=== PATIENT | female | born 1995 | race Caucasian/White ===

== ENCOUNTER 2019-04-26 23:07 | Day surgery (SDC) | payer OTHER ==
[2019-04-26 23:36] VITALS: BMI 22.9
--- NOTE | 2019-04-27 00:11 | PDOC.FPROB ---
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 The patient states she was at home in bed and suddenly felt her abdomen tighten up and had sharp pains radiating into her back. She says the pain was intermittent so she tried to get in the shower to relax her muscles but this made the pain worse. She rated the pain as so bad she was unable to speak so she decided to come to L&D for evaluation. Did report one episode of vomiting 2/2 her pain but denies any associated fever/chills, vaginal bleeding, pain, LOF, or abnormal discharge. She endorses regular movement. Primary Care Physician: Stacy FMR OB H&P: Current - Care : 5 Para: 2021 Gestational age: 24.2 weeks Due date: 08/14/19 Course/Complications: none FMR OB H&P: History - Past Medical History PMH: none - OB History OB History: #1: stillbirth @ 20 weeks #2: SAB @ 3-4 weeks #3: IOL @ ~36 weeks for pre-e; #1: @ ~ 37 weeks - Surgical History Sx History: none - Social History Social History: No TAD. - Family History Family History: Parents- HTN mom- DMII FMR OB H&P: Medications - Current Home Medications: Medication Instructions Recorded Confirmed Type No Known 04/26/19 04/26/19 History Allergies/Adverse Reactions: Allergies Allergy/AdvReac Type Severity Reaction Status Date / Time morphine Allergy Unknown Verified 04/26/19 23:31 FMR OB H&P: ROS - Review of Systems General: denies: fever/chills, weight/appetite/sleep changes Eyes: denies: eye pain, vision changes ENT: denies: nasal congestion, rhinorrhea, sinus pain/pressure, sore throat Cardiovascular: denies: chest pain, edema Respiratory: denies: cough, shortness of breath Gastrointestinal: reports: abdominal pain, nausea, vomiting. denies: bright red blood, dark black tarry stools Genitourinary (Female): reports: contractions, vaginal pressure. denies: dysuria, hematuria, vaginal discharge, vaginal pain, vaginal bleeding Musculoskeletal: reports: pain Neurologic: denies: loss of counsciousness, headache Integumentary: denies: rash, lesions FMR OB H&P: Vital Signs - Maternal Vital signs: BP: 115/70 HR: 98 - Heart Tones Baseline: 130 Variability: moderate Acceleration: present Deceleration: absent Hudson contractions every: q 2-3 minutes initially but stopped s/p PO hydration FMR OB H&P: Physical Exam - Physical Exam General: NAD, awake, alert and oriented HEENT: normocephalic and atraumatic, grossly normal vision, grossly normal hearing Neck: supple, FROM Heart: RRR, normal S1/S2, no murmurs/rubs/gallops, pulses present, no edema General: CTAB, no respiratory distress, good air movement, no rales/rhonchi, no wheezing, no retractions Abdomen: soft, gravid, non-tender, bowel sound present Musculoskeletal: normal gait and station, FROM in all four extremities Neurological: cranial nerves II through XII intact, sensation to pain,touch and proprioception grossly normal, no focal deficit Skin: no rash, good tugor, capillary refill <2 seconds, no jaundice Lymphatic: no unusual bruising or bleeding, no purpura, no petechia Psychiatric: intact recent and remote memory, good judgement and insight, normal mood and affect FMR OB H&P: A/P - Problem List (1) Single in second trimester Current Visit: Yes Status: Acute Code(s): Z34.92 - ENCNTR FOR SUPRVSN OF NORMAL PREG, UNSP, SECOND TRIMESTER (2) History of stillbirth in currently patient Current Visit: Yes Status: Acute Code(s): O09.299 - SUPRVSN OF PREG W POOR REPRODCTV OR OBSTET HISTORY, UNSP TRI (3) History of spontaneous , currently Current Visit: Yes Status: Acute Code(s): O09.299 - SUPRVSN OF PREG W POOR REPRODCTV OR OBSTET HISTORY, UNSP TRI (4) History of pre-eclampsia in prior , currently Current Visit: Yes Status: Acute Code(s): O09.299 - SUPRVSN OF PREG W POOR REPRODCTV OR OBSTET HISTORY, UNSP TRI (5) History of labor, current Current Visit: Yes Status: Acute Code(s): O09.219 - SUPRVSN OF PREG W HISTORY OF PRE-TERM LABOR, UNSP TRIMESTER Disposition: 23YO @ 24.2 weeks who presents to L&D for evaluation for possible contractions that have been intermittent for the last 1.5 hours. Familia Hampton contractions: - Patient was noted to be giancarlo q2-3 minutes initially on the monitor; however, these contractions ceased after PO hydration. Patient was counseled to follow-up with her PCP as scheduled but sooner should these contractions recur. Patient endorsed understanding. h/o stillbirth: - Aware, patient reports that she has had close monitoring over the course of this . h/o SAB: - Aware, see assessment for problem #2. h/o pre-e: - Aware, patient reports no issues with BP during this . BP WNLs at this time. h/o labor: - Patient reports 4th was delivered spontaneously ~3.5 weeks early. No issues this & denies being on any labor prophylaxis. Dispo: Will d/c home with strict instructions to call and f/u with PCP should contractions return. Discussion: Date/Time: 04/27/19 0010 This H&P was discussed with Dr. Gordon who agrees with the above documentation and plan.
== END 2019-04-27 00:30 | disposition home or self-care (01) ==
LOC: L&D/OP 23:07
PROVIDERS: ATTEND Obstetrics & Gynecology
DX: O47.02 False labor before 37 completed weeks of gestation, second trimester (principal); Z87.59 Personal history of other complications of pregnancy, childbirth and the puerperium; Z88.5 Allergy status to narcotic agent; Z3A.24 24 weeks gestation of pregnancy
CPT/HCPCS: 99282

== ENCOUNTER 2019-04-27 06:23 | Day surgery (SDC) | payer OTHER ==
[2019-04-27 06:43] VITALS: BMI 22.9
--- NOTE | 2019-04-27 07:01 | PDOC.FPROB ---
FMR OB H&P: HPI - History of Present Illness Chief Complaint: contractions Indentification: History of Present Illness: 23YO @ 24.3 weeks who presents to L&D complaining of persistent contractions. Reports that her contractions never subsided since leaving L&D last night. States they got intense again early this AM with associated N/V so she decided to return to L&D for evaluation. Again denies any associated fever/ chills, diarrhea, vaginal discharge, LOF, or bleeding. She reports regular movement. Primary Care Physician: Stacy FMR OB H&P: Current - Care : 5 Para: 2021 Gestational age: 24.3 weeks Due date: 08/14/19 Course/Complications: none FMR OB H&P: History - Past Medical History PMH: none - OB History OB History: #1: stillbirth @ 20 weeks #2: SAB @ 3-4 weeks #3: IOL @ ~36 weeks for pre-e; #1: @ ~ 37 weeks - Surgical History Sx History: none - Social History Social History: No TAD. - Family History Family History: Parents- HTN mom- DMII FMR OB H&P: Medications - Current Home Medications: Medication Instructions Recorded Confirmed Type No Known 04/26/19 04/26/19 History Allergies/Adverse Reactions: Allergies Allergy/AdvReac Type Severity Reaction Status Date / Time morphine Allergy Unknown Verified 04/27/19 06:42 FMR OB H&P: ROS - Review of Systems General: denies: fever/chills, recent trauma Eyes: denies: vision changes, scotomas ENT: denies: nasal congestion, sinus pain/pressure, sore throat Cardiovascular: denies: chest pain, edema Respiratory: denies: cough, shortness of breath Gastrointestinal: reports: abdominal pain, nausea, vomiting. denies: cramping, diarrhea, bright red blood, dark black tarry stools Genitourinary (Female): reports: contractions. denies: dysuria, hematuria, vaginal discharge, vaginal pain, vaginal bleeding, vaginal pressure Musculoskeletal: reports: pain. denies: arthritis/arthralgias Neurologic: denies: syncope, headache Integumentary: denies: rash, lesions Psychological: denies: depression, anxiety FMR OB H&P: Vital Signs - Maternal Vital signs: BP: 110/63 HR: 105 RR: 20 temp: 97.8F - Heart Tones Baseline: 140 Variability: moderate Acceleration: present Deceleration: absent [place] contractions every: no regular contractions noted FMR OB H&P: Physical Exam - Physical Exam General: NAD, awake, alert and oriented HEENT: normocephalic and atraumatic, grossly normal vision, grossly normal hearing Neck: supple, FROM Heart: normal S1/S2, no murmurs/rubs/gallops, pulses present, no edema, other ( tachycardic with regular rhythm) General: CTAB, no respiratory distress, good air movement, no rales/rhonchi, no wheezing, no retractions Abdomen: soft, gravid, non-tender, bowel sound present Musculoskeletal: normal gait and station, FROM in all four extremities Neurological: cranial nerves II through XII intact, sensation to pain,touch and proprioception grossly normal, no focal deficit Skin: no rash, good tugor, capillary refill <2 seconds, no jaundice Lymphatic: no unusual bruising or bleeding, no purpura, no petechia Psychiatric: intact recent and remote memory, good judgement and insight, normal mood and affect FMR OB H&P: A/P - Problem List (1) History of pre-eclampsia in prior , currently Current Visit: No Status: Acute Code(s): O09.299 - SUPRVSN OF PREG W POOR REPRODCTV OR OBSTET HISTORY, UNSP TRI (2) History of labor, current Current Visit: No Status: Acute Code(s): O09.219 - SUPRVSN OF PREG W HISTORY OF PRE-TERM LABOR, UNSP TRIMESTER (3) History of spontaneous , currently Current Visit: No Status: Acute Code(s): O09.299 - SUPRVSN OF PREG W POOR REPRODCTV OR OBSTET HISTORY, UNSP TRI (4) History of stillbirth in currently patient Current Visit: No Status: Acute Code(s): O09.299 - SUPRVSN OF PREG W POOR REPRODCTV OR OBSTET HISTORY, UNSP TRI (5) Single in second trimester Current Visit: No Status: Acute Code(s): Z34.92 - ENCNTR FOR SUPRVSN OF NORMAL PREG, UNSP, SECOND TRIMESTER Comment: Faculty Attestation: OBGYN: I have seen the patient and reviewed care in detail. Sxs reviewed. Patient has not had any regular contractions since presentation to L&D this AM. SVE revealed a closed and thick cervix. OB US reassuring with a cervical length measuring 3.5cm..., no need for FFN per ACOG. However, due to the fact that she looks slightly more uncomfortable will get a cath UA to r/o asymptomatic bacteruria as a potential source for her pain. Disposition: 23YO @ 24.3 weeks who presents to L&D for evaluation for contractions that have been intermittent since ~23:30 last night. Abdominal pain: - Patient has not had any regular contractions since presentation to L&D this AM. SVE revealed a closed and thick cervix. OB US reassuring with a cervical length measuring 3.5cm. Thus, no need for FFN. However, due to the fact that she looks slightly more uncomfortable will get a cath UA to r/o asymptomatic bacteruria as a potential source for her pain. h/o stillbirth: - Aware, patient reports that she has had close monitoring over the course of this . h/o SAB: - Aware, see assessment for problem #2. h/o pre-e: - Aware, patient reports no issues with BP during this . BP WNLs at this time. h/o labor: - Patient reports 4th was delivered spontaneously ~3.5 weeks early. No issues this & denies being on any labor prophylaxis. Dispo: Will likely d/c home with strict instructions to call and f/u with PCP should contractions return & PO abx pending UA results. Discussion: Date/Time: 04/27/19 07 This H&P was discussed with Dr. Denise who agrees with the above documentation and plan. Faculty Attestation: [id number]: OBGYN: I have seen the patient and reviewed care in detail. Sxs reviewed. I agree and attest to the data in this H&P. Patient has not had any regular contractions since presentation to L&D this AM. SVE revealed a closed and thick cervix. OB US reassuring with a cervical length measuring 3.5cm..., no need for FFN per ACOG. However, due to the fact that she looks slightly more uncomfortable will get a cath UA to r/o asymptomatic bacteruria as a potential source for her pain.
[2019-04-27 07:53] LABS: FFN Internal QC Analyzer PASS (PASS); FFN Internal QC Cassette PASS (PASS); Fetal Fibronectin Negative (Negative)
--- NOTE | 2019-04-27 08:13 | ULT ---
EXAM: OB ultrasound COMPARISON: None HISTORY: Premature contractions in a female. History of stillborn child at 20 weeks gestatio nal age. TECHNIQUE: Multiplanar grayscale and color Doppler images were obtained in a transabdominal ult rasound. FINDINGS: There is a single live intrauterine with heart rate of 136 bpm. A limited s urvey was performed which is unremarkable. Estimated weight is 757 g. Average age of the fetus based off today's examination is 24 weeks 6 days. BPD 5.99 cm -- 24 weeks 3 days HC 23.17 cm -- 25 weeks 1 day AC 20.10 cm -- 24 weeks 5 days FL 4.62 cm -- 25 weeks 2 days The placenta is posterior in location without focal abnormality. ELLE is 14.3 cm which is normal. The cervix is normal in length. There is no evidence of placenta previa. IMPRESSION: Single live intrauterine with estimated age of 24 weeks 6 days.
[2019-04-27 09:12] LABS: Bilirubin Negative (Negative); Blood, Urine 1+ (Negative); Clarity Clear (Clear); Glucose, Urine (Dipstick) Normal (Negative); Leukocyte 25 Leu/uL (Negative); Mucous/LPF Rare LPF (<2+); Nitrite Negative (Negative); Protein, Urine (Dipstick) 30 mg/dL (Neg-Trace)
[2019-04-27 09:13] LABS: Bacteria/HPF 1+ HPF (None Seen)
[2019-04-27] MEDS ORDERED: Acetaminophen 500 MG TAB PO SCH (09:45)
== END 2019-04-27 10:05 | disposition home or self-care (01) ==
LOC: L&D/OP 06:23
PROVIDERS: ATTEND Obstetrics & Gynecology
DX: O47.02 False labor before 37 completed weeks of gestation, second trimester (principal); Z87.59 Personal history of other complications of pregnancy, childbirth and the puerperium; Z88.5 Allergy status to narcotic agent; Z3A.24 24 weeks gestation of pregnancy
CPT/HCPCS: 51701; 76815; 81001; 82731; 99283

== ENCOUNTER 2019-05-26 10:34 | Day surgery (SDC) | payer OTHER ==
[2019-05-26 11:31] LABS: Amnisure Test No Membranes Rupture (No Rupture)
[2019-05-26 11:32] LABS: Amnisure Internal Control QC ACCEPTABLE (ACCEPTABLE)
[2019-05-26 11:38] VITALS: BMI 23.6
[2019-05-26] MEDS ORDERED: hydrALAZINE 20 MG/ML VIAL SLOW IVP PRN (11:45)
--- NOTE | 2019-05-26 21:10 | SS ---
DATE OF ADMISSION: 05/26/2019 DATE OF DISCHARGE: 05/26/2019 REGULAR PHYSICIAN: Migel Kumar MD. EVALUATING PHYSICIAN: Elio Mcmahon MD CHIEF COMPLAINT: Sent from physician's office. HISTORY OF PRESENT ILLNESS: Ms. Amaral is a 23-year-old white G5, P2 with an estimated date of confinement of 08/14/2019, who presents complaining of 1-week history of suspected leakage of fluid and vaginal discharge. She denies vaginal bleeding or decreased movement. She states that she was seen in Dr. Kumar's office this morning and was sent here for evaluation of the above complaints. PAST OBSTETRICAL HISTORY: Two vaginal deliveries, both at term. PAST MEDICAL HISTORY: Migraine headache. PAST SURGICAL HISTORY: None. CURRENT MEDICATIONS: vitamins. ALLERGIES: MORPHINE. SHE STATES SHE HAD A REACTION DURING HER LAST LABOR, BUT UNCERTAIN TO TYPE. SOCIAL HISTORY: She smokes cigarettes, but denies drug or alcohol use. FAMILY HISTORY: Unremarkable. REVIEW OF SYSTEMS: Denies nausea, vomiting, fever, chills, vaginal bleeding, or decreased movement. PHYSICAL EXAMINATION: VITAL SIGNS: Stable and she is afebrile. GENERAL: She is in no acute distress. heart rate tracing is stable with no decelerations. No uterine activity seen. The patient left AMA prior to her sterile speculum exam. Her laboratories returned with a negative AmniSure and a VPIII that is positive for both Gardnerella and Katherine. ASSESSMENT: 1. A 28-week intrauterine . 2. The patient left AMA. PLAN: I have contacted Dr. Kumar with the patient's results so that when she follows up with him, she can be treated. He was also notified that the assessment here was incomplete. Job ID: [id number]
== END 2019-05-26 13:30 | disposition left against medical advice (07) ==
LOC: L&D/OP 10:34
PROVIDERS: ATTEND Obstetrics & Gynecology
DX: O99.89 Other specified diseases and conditions complicating pregnancy, childbirth and the puerperium (principal); N89.8 Other specified noninflammatory disorders of vagina; O99.333 Smoking (tobacco) complicating pregnancy, third trimester; F17.210 Nicotine dependence, cigarettes, uncomplicated; Z3A.28 28 weeks gestation of pregnancy; Z88.5 Allergy status to narcotic agent
CPT/HCPCS: 84112; 87480; 87510; 87660

== ENCOUNTER 2019-07-18 17:16 | Day surgery (SDC) | payer OTHER ==
[2019-07-18 17:52] VITALS: BMI 24.3
[2019-07-18] MEDS ORDERED: hydrALAZINE 20 MG/ML VIAL SLOW IVP PRN (18:23)
--- NOTE | 2019-07-18 18:26 | PDOC.FPROB ---
FMR OB H&P: HPI - History of Present Illness Chief Complaint: ctx Indentification: 23 y/o @ 36.1 WGA History of Present Illness: Presents for ctx. She reports they have been going on and off all week, but this morning got worse. She reports around 8 am they were every 8-10 minutes and 9/10 pain severity. She denies LOF, vaginal bleeding, vaginal d/c. Reports she was seen by Dr. Kumar yesterday and told she had "low fluid and a bad placenta". She was told to "take it easy", but she went out [id number] with her children last night. Primary Care Physician: Dr. 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 No hx abnormal paps - Surgical History Sx History: Denies - Social History Social History: Reports tobacco cessation earlier in . - Family History Family History: Mom - DM, Dad - HTN FMR OB H&P: Medications - Current Home Medications: Medication Instructions Recorded Confirmed Type No Known 05/26/19 07/18/19 History Allergies/Adverse Reactions: Allergies Allergy/AdvReac Type Severity Reaction Status Date / Time morphine Allergy Unknown Verified 07/18/19 17:51 banana Allergy Verified 07/18/19 17:51 FMR OB H&P: ROS - Review of Systems General: denies: fever/chills, fatigue Eyes: denies: eye pain, vision changes, double vision ENT: denies: nasal congestion, sore throat Cardiovascular: denies: chest pain, edema Respiratory: denies: cough, shortness of breath Gastrointestinal: denies: nausea, vomiting, diarrhea Genitourinary (Female): reports: contractions. denies: dysuria, hematuria, vaginal discharge, vaginal bleeding Musculoskeletal: denies: pain, stiffness Neurologic: denies: numbness, weakness Integumentary: denies: itching, rash Hematologic/Lymphatic: denies: prolonged or excessive bleeding Psychological: denies: depression, anxiety FMR OB H&P: Vital Signs - Maternal Vital signs: BP 120/73, HR 112, Temp 97.5 - Heart Tones Baseline: 135 Variability: moderate Acceleration: present Deceleration: absent Category: category 1 V[place] contractions every: 10-15 minutes FMR OB H&P: Physical Exam - Physical Exam General: NAD, awake, alert and oriented HEENT: normocephalic and atraumatic, MMM, conjunctiva clear, grossly normal vision, grossly normal hearing Neck: supple, no LAD Heart: RRR, normal S1/S2, no murmurs/rubs/gallops, pulses present, no edema General: CTAB, no respiratory distress, good air movement, no rales/rhonchi, no wheezing Abdomen: soft, gravid Musculoskeletal: normal gait and station, pulses present, FROM in all four extremities Neurological: no clonus, no focal deficit Skin: good tugor, capillary refill <2 seconds Lymphatic: no unusual bruising or bleeding, no purpura Psychiatric: intact recent and remote memory, good judgement and insight - Pelvic Exam SVE: Membranes: intact FMR OB H&P: A/P - Problem List (1) contractions Status: Acute Code(s): O47.9 - FALSE LABOR, UNSPECIFIED Assessment and Plan: Pt with SVE with few ctx on monitor, does not appear in labor at this time. Pt scheduled for IOL on Sunday -Will d/c home with labor precautions -f/u with Dr. Kumar Disposition: d/c home Discussion: Date/Time: 07/18/19 4579 This H&P was discussed with Dr. Danielson who agrees with the above documentation and plan. Signature: Natalee France MD, PGY-3 Addendum - Attending - Attending Attestation Date/Time: 07/19/19 0478 I personally evaluated the patient and discussed the management with Dr. France. I agree with the History, Examination, Assessment and Plan documented above.
[2019-07-19] MEDS ORDERED: FLU VACC QS2019-20(6MOS UP)/PF 60 MCG/0.5 ML SYRINGE IM ONE (18:00)
== END 2019-07-18 18:36 | disposition home or self-care (01) ==
LOC: L&D/OP 17:16
PROVIDERS: ATTEND Obstetrics & Gynecology
DX: O47.03 False labor before 37 completed weeks of gestation, third trimester (principal); Z3A.36 36 weeks gestation of pregnancy; Z88.5 Allergy status to narcotic agent; Z91.018 Allergy to other foods
CPT/HCPCS: 99282

== ENCOUNTER 2019-07-20 16:52 | Day surgery (SDC) | payer OTHER ==
[2019-07-20 17:30] VITALS: BP 119/66; TEMP 98.3; BMI 24.3
[2019-07-20] MEDS ORDERED: hydrALAZINE 20 MG/ML VIAL SLOW IVP PRN (17:52)
--- NOTE | 2019-07-20 18:46 | HP ---
TIME OF EVALUATION: Roughly 1899. LOCATION: Triage bed B. This is patient of Dr. Kumar. CHIEF COMPLAINT: The patient is here for irregular contractions after prolonged walking today. HISTORY OF PRESENT ILLNESS: In brief, this patient is a 23-year-old, G5, P2 (1 ) at 36 weeks and 11/21 by stated EDC, who was actually seen last Sunday (about two days ago) for similar symptoms. At that time, she was found to be having irregular contractions, and her cervix was 1 cm dilated and 20% effaced. It is important to note that she did see Dr. Kumar as well late last week, who diagnosed her with "low fluid" and scheduled her for an induction of labor at 36 weeks and 6 days. Today, the patient states that there is some decreased movement, but there is no vaginal bleeding or leakage of fluid. She states the contraction has happened after prolonged walking today. REVIEW OF SYSTEMS: Complete review of systems was completed and is otherwise negative unless specified in the HPI. PAST MEDICAL HISTORY: Otherwise unremarkable. PAST SURGICAL HISTORY: Noncontributory. SOCIAL HISTORY: Significant for smoking and she states the last time that she smoked was 3 weeks in this . ALLERGIES: NONE. OB HISTORY: She has had two prior vaginal births. PHYSICAL EXAMINATION: VITAL SIGNS: Her blood pressure is 119/66. She is afebrile. Pulse and respirations are within normal limits. Clinically, she is in no acute distress. ABDOMEN: Soft without evidence of rebound, and there is no clinical evidence of vaginal bleeding or gross evidence of rupture of membranes on perineal inspection. CERVICAL: Based on the RN's first cervical exam on arrival, the patient's cervix was 1 cm dilated, thick in effacement and minus station (high station). There is no evidence of gross leakage or gross vaginal bleeding on her examination. On monitor, I did evaluate the strip, and the baby's heart rate meets criteria for reactivity with moderate variability and accelerations. There are no pathological decelerations. On tocodynamometer, there is some baseline irritability, but no distinct contraction pattern. There is only one contraction in the monitor that I have reviewed. ASSESSMENT: This is a 5, Para 2, at 36 weeks and 3 days with "low fluid" but I do not have any further details on that. She is scheduled for an induction at 36 weeks and 6 days by her provider. PLAN: 1. Nonstress test is reactive. 2. No evidence of labor as she is 1 cm, which is the same as she was two days previous. 3. No evidence of bleeding or rupture of membranes. 4. No evidence of hypertension at this time. 5. I have ordered a limited/targeted OB ultrasound to check the largest pocket to make sure that we are not sending home somebody with overtly severe oligohydramnios. 6. As long as her largest pocket/ELLE is within normal limits, we will send her out to continue her care per Dr. Kumar. ADDENDUM: Largest pocket was 3.2 by verbal report to me. ROCHELLE for outpatient care Job ID: [id number] MTDD
--- NOTE | 2019-07-20 19:52 | ULT ---
LIMITED OB ULTRASOUND: HISTORY: Evaluation for largest pocket of amniotic fluid. History of low ELLE. FINDINGS: A single viable intrauterine in a vertex presentation is noted. The heart rate is 168 beats per minute. Umbilical artery Doppler: The systolic to diastolic ratio is 1.9. The pulsatility index is 0.65 and resistive index is 0.48. The largest pocket of fluid is 3 x 4 cm. IMPRESSION: 1. The largest pocket of fluid is 3 x 4 cm. 2. The systolic to diastolic rate shows resistive index and pulsatility index of the umbilical artery Doppler measurements fall outside the 50th to 95th percentile range. POS: [facility]
== END 2019-07-20 18:57 | disposition home or self-care (01) ==
LOC: L&D/OP 16:52
PROVIDERS: ATTEND Obstetrics & Gynecology
DX: O47.03 False labor before 37 completed weeks of gestation, third trimester (principal); Z3A.36 36 weeks gestation of pregnancy; Z87.891 Personal history of nicotine dependence; Z88.5 Allergy status to narcotic agent; Z91.018 Allergy to other foods
CPT/HCPCS: 76815; 99283

== ENCOUNTER 2019-07-23 05:08 | Inpatient (IN) | payer OTHER ==
--- NOTE | 2019-07-22 23:09 | PDOC.LDHP ---
Labor and Delivery H&P HPI: 23 y/o at 37 and 0/7 weeks with oligohydramnios presents forr early term medically indicated induction of labor, per ACOG guidelines. Current gestational age (weeks): 37 Grav: 5 Para: 2 Current complications: oligohydramnios Abnormal US findings: No (low Amniotic Fluid) Current medications: pre- vitamins Previous surgical history: none Allergies/Adverse Reactions: Allergies Allergy/AdvReac Type Severity Reaction Status Date / Time morphine Allergy Unknown Verified 07/18/19 17:51 banana Allergy Verified 07/18/19 17:51 Social history: tobacco use - Physical Exam Vital signs reviewed and normal: yes General: NAD, resting Heart: RRR Lungs: CTAB Abdomen: gravid Extremeties: no edema FHT: category 1 - Assessment L&D Assessment: medically indicated induction - Plan Plan: admit to L&D, cervical ripening
[~2019-07-23 05:08] MED LIST: Acetaminophen 500 MG TAB PO PRN; Butorphanol Tartrate 1 MG/ML VIAL SLOW IVP PRN; Carboprost 250 MCG/ML AMP IM PRN; Diphenoxylate HCl/Atropine Tablet PO PRN; Docusate 100 MG CAP PO PRN; Ibuprofen 800 MG TAB PO PRN; Lidocaine 1% (PF) 30 ML VIAL SC PRN; Methylergonovine 0.2 MG/ML VIAL IM PRN; Misoprostol 200 MCG TAB PR PRN; NS / Oxytocin 40 units/1000ml 1,000 ML IV PRN; NS w/ Oxytocin 10 units 500 ML IV SCH; Ondansetron PF 4 MG/2 ML Vial IVP PRN; Promethazine HCl 25 MG/ML VIAL IM PRN; hydrALAZINE 20 MG/ML VIAL SLOW IVP PRN
[2019-07-23 06:14] LABS: Hemoglobin 9.3 g/dL (12.0-16.0); Mean Corpuscular HGB CONC 33.8 g/dL (32.0-36.0); Mean Corpuscular Hemoglobin 28.3 pg (27.0-31.0); Mean Corpuscular Volume 83.6 fL (78.0-98.0); Mean Platelet Volume 7.3 fL (7.4-10.4); Platelet Count 266 thou/uL (130-400); RBC Distribution Width 12.1 % (11.5-14.5); Red Blood Cell (RBC) Count 3.27 mill/uL (4.20-5.40)
[2019-07-23 06:17] VITALS: BMI 24.3
[2019-07-23 06:52] LABS: HBSAg Index 0.22 S/CO (0-0.99); Hep B Surf Ag Non-Reactive S/CO (NonReactive)
[2019-07-23 06:55] LABS: Syphilis Antibody Nonreactive (Nonreactive); Syphilis Antibody Index 0.08 S/CO (<1.00 Non-Reactive)
[2019-07-23] MEDS ORDERED: Fentanyl 4 mcg/Bup 0.1% Cadd 100 ML ONE ×2 (07:12→14:54)
[2019-07-23] MEDS ORDERED: Acetaminophen 325 MG TAB PO PRN (08:00)
[2019-07-23] MEDS ORDERED: Ondansetron PF 4 MG/2 ML Vial IVP PRN ×2 (08:00→21:30)
[2019-07-23] MEDS ORDERED: Communication Order-Pharmacy FS SCH (08:00)
[2019-07-23] MEDS ORDERED: Naloxone HCl 0.4 mg/ml Vial IVP PRN ×2 (08:00)
[2019-07-23] MEDS ORDERED: Lactated Ringer's 500 ML IV PRN (08:00)
[2019-07-23] MEDS ORDERED: ePHEDrine/0.9% NaCl/PF SYRINGE 50 mg/10 ml SLOW IVP PRN (08:00)
[2019-07-23] MEDS ORDERED: diphenhydrAMINE 50 MG/ML VIAL IVP PRN (08:00)
[2019-07-23] MEDS ORDERED: Fentanyl 4 mcg/Bupivacaine 0.1% Cassette 100 ML EPIDURAL SCH (08:00)
[2019-07-23] MEDS ORDERED: Promethazine HCl 25 MG/ML VIAL IM PRN ×2 (08:00→21:30)
[2019-07-23] MEDS: Lactated Ringer's 1,000 ML IV SCH ×3 (08:07→22:49)
[2019-07-23] MEDS ORDERED: Bupivacaine HCl 0.25%/Epi 0.0005/PF 10 ML VIAL FS ONE (11:11)
[2019-07-23] MEDS ORDERED: NS / Oxytocin 40 units/1000ml 0 ML ONE (19:24)
[2019-07-23] MEDS ORDERED: Lidocaine 1% (PF) 30 ML VIAL ONE (19:24)
[2019-07-23] MEDS ORDERED: NS / Oxytocin 40 units/1000ml 1,000 ML ONE (19:51)
[2019-07-23] MEDS ORDERED: Misoprostol 200 MCG TAB ONE (19:51)
[2019-07-23] MEDS ORDERED: Carboprost 250 MCG/ML AMP ONE (19:51)
[2019-07-23] MEDS ORDERED: Methylergonovine 0.2 MG/ML VIAL ONE (19:51)
[2019-07-23] MEDS ORDERED: Zolpidem Tartrate 5 MG TAB PO PRN (21:30)
[2019-07-23] MEDS ORDERED: Preparation H Ointment 28 GM TUBE PR PRN (21:30)
[2019-07-23] MEDS ORDERED: Benzocaine-Menthol 82.5 ML CAN TOP PRN (21:30)
[2019-07-23] MEDS ORDERED: Milk Of Magnesia 30 ML UDCUP PO PRN (21:30)
[2019-07-23] MEDS ORDERED: Measles/Mumps/Rubella 10 MCG/0.5 ML VIAL SC ONE (21:30)
[2019-07-23] MEDS ORDERED: Bisacodyl 10 MG SUPP PR PRN (21:30)
[2019-07-23] MEDS ORDERED: NS / Oxytocin 40 units/1000ml 1,000 ML IV SCH (21:30)
[2019-07-23] MEDS ORDERED: diphenhydrAMINE 25 MG CAP PO PRN (21:30)
[2019-07-23] MEDS ORDERED: Lanolin Ointment 7 GM TUBE TOP PRN (21:30)
[2019-07-23] MEDS ORDERED: Methylergonovine 0.2 MG/ML VIAL IM PRN (21:30)
[2019-07-23] MEDS ORDERED: Varicella virus, LIVE 0.5 ML VIAL SC ONE (21:30)
[2019-07-23] MEDS ORDERED: hydrALAZINE 20 MG/ML VIAL SLOW IVP PRN (21:30)
[2019-07-23] MEDS ORDERED: Adacel (T-DAP) 0.5 ML SYRINGE IM ONE (21:30)
[2019-07-23] MEDS ORDERED: Ibuprofen 800 MG TAB PO SCH (22:00)
[2019-07-23] MEDS: Docusate Calcium (SURFAK) 240 MG CAP PO SCH (23:58)
[2019-07-24 05:57] LABS: Hemoglobin 8.3 g/dL (12.0-16.0); Mean Corpuscular HGB CONC 33.1 g/dL (32.0-36.0); Mean Corpuscular Hemoglobin 28.1 pg (27.0-31.0); Mean Corpuscular Volume 84.7 fL (78.0-98.0); Mean Platelet Volume 6.9 fL (7.4-10.4); Platelet Count 217 thou/uL (130-400); Red Blood Cell (RBC) Count 2.96 mill/uL (4.20-5.40); White Blood Cell (WBC) Count 12.6 thou/uL (4.8-10.8)
[2019-07-24] MEDS: Prenatal Vitamin 1 TAB PO SCH (09:37)
[2019-07-24] MEDS: Docusate Calcium (SURFAK) 240 MG CAP PO SCH ×2 (09:37→21:51)
[2019-07-24] MEDS: Ferrous Sulfate 325 MG TAB PO SCH ×2 (09:38→17:05)
[2019-07-24] MEDS: Ibuprofen 800 MG TAB PO SCH ×2 (09:38→17:05)
--- NOTE | 2019-07-24 10:57 | PDOC.PP ---
Post Progress Note Post Day #: 1 PO intake tolerated: yes Flatus: yes Ambulation: yes Vital Signs (12 hours) Temp Pulse Resp BP Pulse Ox 07/24/19 08:02 98.2 F 78 20 113/64 100 07/24/19 04:00 98.3 F 81 16 113/63 98 07/24/19 01:11 86 18 89/52 L 98 07/24/19 00:18 98.8 F 96 18 111/60 98 07/24/19 00:00 98 Weight Weight 151 lb - Physical Examination General: NAD Cardiovascular: no m/r/g, RRR Respiratory: clear to auscultation bilaterally Abdominal: + bowel sounds, lochia, no distention Extremities: negative homans (B) Neurological: no gross focal deficits Psychiatric: A&Ox3, normal affect Result Diagrams: 07/24/19 05:46 Additional Labs: Post Labs Blood Type A POSITIVE 07/23/19 05:59 Hep Bs Antigen Non-Reactive S/CO (NonReactive) 07/23/19 05:59
--- NOTE | 2019-07-24 20:38 | DN ---
DATE OF PROCEDURE: 07/23/2019 PREOPERATIVE DIAGNOSIS: Intrauterine at 36 weeks and 6 days with a medical induction of labor for oligohydramnios. POSTOPERATIVE DIAGNOSIS: Intrauterine at 36 weeks and 6 days with a medical induction of labor for oligohydramnios. PROCEDURE PERFORMED: Spontaneous vaginal delivery over intact perineum. FINDINGS: Viable male infant, weighing 2875 g or 6 pounds 5 ounces. Apgars 8, 2 and 7. QUANTITATIVE BLOOD LOSS: 260 mL. COMPLICATIONS: None. PROCEDURE IN DETAIL: The patient presented to [facility] where she was admitted to the labor and delivery service. The patient underwent a normal and uneventful labor with normal cervical dilatation until she was found to be completely dilated. She was then allowed to push and was able to bring the baby down and delivered the baby in a vertex presentation without difficulties. Once the head delivered in occiput anterior position, the shoulders followed spontaneously along with the rest of the baby's body. Once out the baby's mouth and nose were bulb suctioned. The cord was clamped and cut and baby was handed to waiting attendants. Cord blood was collected. Gentle fundal massage was performed and the placenta delivered intact without problems. Hemostasis was assured. Quantitative blood loss was calculated. Inspection of the cervix, vaginal vault, and perineum did not reveal any lacerations needing suturing. Once again, hemostasis was within normal limits and the patient was allowed to recover in the labor and delivery room. Baby went to nursery. Job ID: [id number]
[2019-07-25] MEDS: Ibuprofen 800 MG TAB PO SCH ×2 (00:10→07:35)
[2019-07-25] MEDS: Prenatal Vitamin 1 TAB PO SCH (07:35)
[2019-07-25] MEDS: Ferrous Sulfate 325 MG TAB PO SCH (07:35)
[2019-07-25 07:36] VITALS: BP 122/56; TEMP 98.2
[2019-07-25] MEDS: Docusate Calcium (SURFAK) 240 MG CAP PO SCH (07:36)
== END 2019-07-25 09:45 | disposition home or self-care (01) | DRG 807 ==
LOC: L&D 05:08 → 3SE 23:45
PROVIDERS: ADMIT Obstetrics & Gynecology; ATTEND Obstetrics & Gynecology
PROC: 10E0XZZ Delivery of Products of Conception, External Approach (ICD-10-PCS; principal; 2019-07-23)
PROC: 3E0P7VZ Introduction of Hormone into Female Reproductive, Via Natural or Artificial Opening (ICD-10-PCS; 2019-07-23)
PROC: 3E033VJ Introduction of Other Hormone into Peripheral Vein, Percutaneous Approach (ICD-10-PCS; 2019-07-23)
DX: O42.013 Preterm premature rupture of membranes, onset of labor within 24 hours of rupture, third trimester (principal); Z37.0 Single live birth; Z88.5 Allergy status to narcotic agent; Z91.018 Allergy to other foods; O99.334 Smoking (tobacco) complicating childbirth; F17.200 Nicotine dependence, unspecified, uncomplicated; Z3A.36 36 weeks gestation of pregnancy
CPT/HCPCS: 36415; 51702; 85027; 86780; 86850; 86900; 86901; 87340; J1200; J2001; J2210; J2590; J3490

== ENCOUNTER 2021-10-05 22:11 | Emergency (ER) | payer OTHER ==
[2021-10-05 22:40] LABS: Bilirubin Negative (Negative); Blood, Urine Negative (Negative); Clarity Clear (Clear); Glucose, Urine (Dipstick) Normal (Negative); Ketone, Urine Negative (Negative); Leukocyte 25 Leu/uL (Negative); Nitrite Negative (Negative); Protein, Urine (Dipstick) Negative (Neg-Trace); RBC/HPF 0-3 HPF (0-3); Squamous Epithelial 0-3 HPF (0-3); Urobilinogen Normal mg/dL (Less than 2); WBC/HPF 0-3 HPF (0-3)
[2021-10-05 22:51] LABS: Bacteria/HPF 1+ HPF (None Seen)
[2021-10-05 22:52] LABS: #Eosinphils 0.2 thou/uL (0.0-0.7); #Lymphocytes 2.2 thou/uL (1.20-3.40); #Neutrophils 7.6 thou/uL (1.40-6.50); %Basophils 0.2 % (0.0-1.0); %Eosinophils 1.5 % (0.0-10.0); %Lymphocytes 19.9 % (21.0-51.0); %Monocytes 8.7 % (0.0-10.0); %Neutrophils 69.7 % (42.0-75.0); Hemoglobin 9.5 g/dL (12.0-16.0); Mean Corpuscular HGB CONC 34.4 g/dL (32.0-36.0); Mean Corpuscular Hemoglobin 30.9 pg (27.0-31.0); Mean Corpuscular Volume 89.9 fL (78.0-98.0); Mean Platelet Volume 6.8 fL (7.4-10.4); Platelet Count 352 thou/uL (130-400); RBC Distribution Width 11.8 % (11.5-14.5); Red Blood Cell (RBC) Count 3.08 mill/uL (4.20-5.40); White Blood Cell (WBC) Count 10.9 thou/uL (4.8-10.8)
[2021-10-05 23:13] LABS: ALT (SGPT) Less than 7 U/L (8-55); AST (SGOT) 14 U/L (5-34); Albumin 3.7 g/dL (3.5-5.0); Alkaline Phosphatase 59 U/L (40-110); Anion Gap 11 mmol/L (10-20); BUN (Urea Nitrogen) 5 mg/dL (7.0-18.7); Bilirubin, Total 0.3 mg/dL (0.2-1.2); Calc. Creatinine Clearance 0 mL/min (70-130); Calcium 8.8 mg/dL (7.8-10.44); Carbon Dioxide 22 mmol/L (22-29); Chloride 107 mmol/L (98-107); Globulin 3.4 g/dL (2.4-3.5); Glucose 91 mg/dL (70-105); Potassium 3.5 mmol/L (3.5-5.1); Protein, Total 7.1 g/dL (6.0-8.3); Sodium 136 mmol/L (136-145)
== END 2021-10-06 00:07 | disposition short-term general hospital (02) ==
LOC: ERS 22:11
DX: O99.891 Other specified diseases and conditions complicating pregnancy (principal); R10.30 Lower abdominal pain, unspecified; Z3A.24 24 weeks gestation of pregnancy; O99.352 Diseases of the nervous system complicating pregnancy, second trimester; G43.909 Migraine, unspecified, not intractable, without status migrainosus; O99.332 Smoking (tobacco) complicating pregnancy, second trimester; F17.210 Nicotine dependence, cigarettes, uncomplicated
CPT/HCPCS: 80053; 81003; 81015; 85025; 86850; 86900; 86901; 99284

== ENCOUNTER 2024-08-24 20:54 | Emergency (ER) | payer OTHER ==
[2024-08-24] MEDS ORDERED: Ketorolac Tromethamine 30 MG (1 mL) VIAL ONE (23:51)
== END 2024-08-25 00:25 | disposition home or self-care (01) ==
LOC: ERS 20:54
DX: M76.52 Patellar tendinitis, left knee (principal); F17.210 Nicotine dependence, cigarettes, uncomplicated
CPT/HCPCS: 96372; J1885